=== PATIENT | female | born 1990 | race Caucasian/White ===

== ENCOUNTER 2016-07-23 19:31 | Emergency (ER) | payer SELFPAY ==
[2016-07-23 20:38] VITALS: BP 120/77
--- NOTE | 2016-07-23 22:42 | UC ---
Complaint Female HPI - HPI Summary HPI Summary: The patient comes in today for: 1. Urinary frequency, dysuria, but no urgency: Onset: within the last 24 hours. Palliative/provocative: Urination makes the burning worse. Tylenol 1000 mg helped. Quality: Dysuria. Region: Severity: 0/10 Time: Constant, Associated symptoms: Fevers: No temperatures taken at home. Last UTI: one year ago. Kidney failure: None Back pain: "little." * - History Of Current Complaint Chief Complaint: [facility]CGU Stated Complaint: POSSIBLE UTI, AND ABDOMINAL PAIN Time Seen by Provider: 07/23/16 22:32 Hx Obtained From: Patient Hx Last Menstrual Period: 07/17/16 ?: No - Allergies/Home Medications Allergies/Adverse Reactions: Allergies Allergy/AdvReac Type Severity Reaction Status Date / Time Amoxicillin Allergy Hives Verified 05/20/15 14:52 Home Medications: Home Medications ALPRAZolam TAB* [Xanax TAB*] 07/23/16 [History] Multiple Vitamins W/ Minerals [Multivitamin Women] 1 tab PO 07/23/16 [History] Venlafaxine CAP (NF) [Effexor CAP (NF)] 75 mg 07/23/16 [History] PMH/Surg Hx/FS Hx/Imm Hx Previously Healthy: No - Cervix cancer cells. Endocrine History Of: Denies: Diabetes, Thyroid Disease, Hyperthyroidism, Hypothyroidism, Dyslipidemia Cardiovascular History Of: Denies: Cardiac Disorders, Hypertension, Pacemaker/ICD, Myocardial Infarction , Congestive Heart Failure, Atrial Fibrillation, Deep Vein Thrombosis, Bleeding Disorders Respiratory History Of: Denies: COPD, Asthma, Bronchitis, Pneumonia, Pulmonary Embolism GI/ History Of: Denies: Gastroesophageal Reflux, Ulcer, Gastrointestinal Bleed, Gall Bladder Disease, Kidney Stones, Diverticulitis, Renal Disease, Urosepsis Neurological History Of: Denies: TIA, CVA, Dementia, Seizures, Migraine Psychological History Of: Reports: Anxiety - one panic attack with palpitations resolved in ED, Depression Denies: Bipolar Disorder, Schizophrenia, Post Traumatic Stress Disorder Cancer History Of: Denies: Lung Cancer, Colorectal Cancer, Breast Cancer, Prostate Cancer, Cervical Cancer Other History Of: Negative For: HIV, Hepatitis B, Hepatitis C, Anticoagulant Therapy - Surgical History Surgical History: None Surgery Procedure, Year, and Place: IUD in place for past 3 years; discussed option of removal until this condition resolves. - Family History Known Family History: Positive: Cardiac Disease, Hypertension, Diabetes - Social History Occupation: Unemployed Lives: With Family Alcohol Use: Rare Substance Use Type: None Smoking Status (MU): Heavy Every Day Tobacco Smoker Type: Cigarettes Amount Used/How Often: 1/2 ppd + Length of Time of Smoking/Using Tobacco: 7yrs on and off Have You Smoked in the Last Year: Yes Review of Systems Constitutional: Negative Skin: Negative Eyes: Negative ENT: Negative Respiratory: Negative Cardiovascular: Negative Gastrointestinal: Negative Genitourinary: Dysuria, Frequency All Other Systems Reviewed And Are Negative: Yes Physical Exam Triage Information Reviewed: Yes Appearance: Well-Appearing, No Pain Distress, Well-Nourished Vital Signs: Initial Vital Signs Temp 98.7 F 07/23/16 20:32 Pulse 84 07/23/16 20:32 Resp 18 07/23/16 20:32 BP 120/77 07/23/16 20:32 Pulse Ox 100 07/23/16 20:32 Vital Signs Reviewed: Yes Eyes: Positive: Conjunctiva Clear. Negative: Discharge ENT: Positive: Hearing grossly normal. Negative: Pharyngeal erythema, Nasal congestion, Nasal drainage, TM bulging, TM dull, TM red, Tonsillar swelling, Tonsillar exudate Dental: Negative: Gross Decay/Caries @, Dental Fracture @ Neck: Positive: Supple, Nontender, No Lymphadenopathy. Negative: Nuchal Rigidity Respiratory: Positive: Lungs clear, No respiratory distress, No accessory muscle use Cardiovascular: Positive: RRR, No Murmur Abdomen Description: Positive: Nontender, No Organomegaly, Soft. Negative: CVA Tenderness (R), CVA Tenderness (L), Distended, Guarding, Peritoneal Signs Musculoskeletal: Positive: Strength Intact, ROM Intact Neurological: Positive: Alert, Muscle Tone Normal Psychological: Positive: Age Appropriate Behavior, Consolable Skin: Negative: rashes, breakdown Diagnostics - Laboratory Diagnostic Studies Completed/Ordered: Urine screen: Specific gravity: 1.020. WBC: 500. Nitrite: (-). Blood: 2+. Protein: 30. Glucose: None Complaint Female Dx - Differential Dx/Diagnosis Provider Diagnoses: UTI Discharge - Discharge Plan Condition: Stable Disposition: HOME Patient Education Materials: Urinary Tract Infection in Women (ED) Referrals: Emir Mcdonald MD [Primary Care Provider] - 1 Week (Please see your primary care provider in a week to see how well you are doing. If you get worse, please be seen sooner in the ER or through us.)
[2016-07-23] MEDS ORDERED: Sulfamethox/Trimethoprim DS 800/160* TAB PO ONE (22:50)
[2016-07-23] MEDS ORDERED: Phenazopyridine TAB* 100 MG PO ONE (22:51)
== END 2016-07-23 23:03 | disposition home or self-care (01) ==
LOC: UCEAST 19:31
DX: N39.0 Urinary tract infection, site not specified (principal); F41.0 Panic disorder [episodic paroxysmal anxiety]; F17.210 Nicotine dependence, cigarettes, uncomplicated; Z88.0 Allergy status to penicillin
CPT/HCPCS: 81002; 87077; 87086; 87186; 99212; A9270-GY; G0463